=== PATIENT | male | born 1985 | race Caucasian/White ===

== ENCOUNTER 2017-06-07 23:09 | Inpatient (IN) | payer MEDICARE, OTHER ==
[~2017-06-07] VITALS: Ht 180.3 cm; Wt 78.6 kg
--- NOTE | ~2017-06-07 | A ---
[facility] Nutrition Therapy DATE: 06/08/17 Patient: MEGAN PACK Physician: RODRIGO Address: [address] [place] [address] Room/Bed: [address], Zip: [place] [address] Admit Date: 06/08/17 Date of : [birth year] Height: 5 11 Weight: 174 79 NUTRITIONAL ASSESSMENT: REASON: NPO in ICU 32 y/o male admitted for seizures PMH: Delta's syndrome, MR, seizures Anthropometrics: ht: 5'11" wt: 174# (79 kg) BMI 24 Labs: Glu 309, Creat 1.6, GFR 55.4 Meds: propofol, NaCl, vancomycin, zofran, BMP I/O & Bowel function: no data/900 Skin Integrity: no data Estimated Nutrition Needs: 2141-0760 kcal/kg (20-25 Kcal/kg BW) 79-118 g protein (1.0-1.5 g/kg) fluids consistent with kcals or per MD Assessment: Chart reviewed, events noted. Pt is intubated and sedated in ICU. Pt has had multiple seizures due to his PMH. Pt has DHT in place. The pt is currently on Propofol, running at 20.8 mL/hr. No family in room at time of visit. Please see recommendations, RD will continue to follow. Dx: Inadequate oral intake r/t current condition, PMH AEB pt on vent, NPO Intervention: 1. NPO Monitoring, Evaluation and Goals: 1. Enteral nutrition; once medically feasible, if initiated, provide >80% estimated goal volume 2. Oral intake; once medically feasible, if diet advanced, consume/tolerate >50% of all meals 3. Weight; promote healthy weight maintenance 4. Labs: WNL Recommendations: 1. WITH PROPOFOL: [facility] Nutrition Therapy DATE: 06/08/17 Patient: MEGAN PACK Physician: RODRIGO Address: [address] [place] [address] Room/Bed: [address], Zip: [place] [address] Admit Date: 06/08/17 Date of : [birth year] Height: 5 11 Weight: 174 79 Once medically feasible, per MD, initiate enteral nutrition support of Jevity 1.5 @ 20 mL/hr and advance 15 mL q 8 hours to goal rate of 45 mL/hr x 24 hours + sugar-free prostat 30 ml once daily. This provides 2270 kcal (with propofol), 84 g protein, 821 mL h20. Free h20 flushes per MD. WITHOUT PROPOFOL: Once medically feasible, per MD, initiate enteral nutrition support of Jevity 1.5 @ 20 mL/hr and advance 15 mL q 8 hours to goal rate of 55 mL/hr. This provides 1980 kcal, 84 g protein, 1003 mL h20. Free h20 flushes per MD. 2. If pt extubated, advance diet per [employer] recommendations to regular diet. RD will f/u per protocol as pt is at mild/moderate nutritional risk. Respectfully, BERNARDA ROCKWELL, Train Station Server Murali Dewitt MS, RD, LD Food and Nutritional Services [facility] cc: client file
--- NOTE | ~2017-06-07 | CR6 ---
[facility] A Service of [facility] & [facility] RADIOLOGY TEXT RESULTS PATIENT: MEGAN PACK LOCATION: [address] : 83 UNIT #: [id number] AGE: [address]: Nallely Le MD SEX: M ORDER DR: [id number] [id number] [place], [place] [address] [id number] I MR#: [id number] Acc #: [id number] NAME: MEGAN PACK : 1985 SEX: M STUDY DATE/TIME: 06/09/2017 14:21 UNIT: [facility] ROOM: [facility] STUDY DESCRIPTION: CR Abdomen Portable Sng View Attending Physician: Nallely Le M.D. Ordering Physician: Er Physicians Primary Care Physician: No Primary Care Physician MEDICAL IMAGING REPORT This report is preliminary unless electronic signature is present EXAM AP of the abdomen INDICATIONS Dobbhoff tube placement. COMPARISON Yesterday FINDINGS Tip of the Dobbhoff tube is located below the diaphragm in the region of the stomach. IMPRESSION Tip of the Dobbhoff tube in the region of the stomach. Dictated by... Vu Burroughs M.D. THIS IS AN ELECTRONICALLY VERIFIED REPORT Vu Burroughs M.D. at 06/12/2017 7:25 AM Roslyn TD: 06/09/2017 17:44 JOB #: [id number] MEDICAL IMAGING REPORT Page 1 of 1 COPY
--- NOTE | ~2017-06-07 | CR72 ---
[facility] A Service [facility] RADIOLOGY TEXT RESULTS PATIENT: MEGAN PACK LOCATION: [address]07 : 83 UNIT #: [id number] AGE: [address]: Nallely Le MD SEX: M ORDER DR: [id number] [facility] [address] [facility]. [place], [place] [address] [id number] I MR#: [id number] Acc #: [id number] NAME: MEGAN PACK. : 1985 SEX: M STUDY DATE/TIME: 06/09/2017 5:53 UNIT: [facility] ROOM: [facility] STUDY DESCRIPTION: CR Chest Single View Portable Attending Physician: Nallely Le M.D. Ordering Physician: Yas Houston M.D. Primary Care Physician: Primary Care Physician No MEDICAL IMAGING REPORT This report is preliminary unless electronic signature is present EXAM Single view chest INDICATION Left lower lobe pnuemonia. Pleural effusion FINDINGS Single portable AP view of the chest compared to 06/08/2017. Endotracheal tube and enteric tube remain in place. Heart and mediastinal contours are unchanged. Developing airspace opacity in the left lung base. There may be a small associated effusion. No pneumothorax. IMPRESSION Developing airspace opacity in the left lung base likely represents atelectasis. There may be a small associated effusion. Dictated by... Chris Nicole M.D. THIS IS AN ELECTRONICALLY VERIFIED REPORT Chris Nicole M.D. at 06/09/2017 4:00 PM JAK/neela TD: 06/09/2017 08:51 JOB #: [id number] MEDICAL IMAGING REPORT [facility] A Service [facility] RADIOLOGY TEXT RESULTS PATIENT: MEGAN PACK LOCATION: [address] : 83 UNIT #: [id number] AGE: [address]: Nallely Le MD SEX: M ORDER DR: Page 1 of 1 COPY
--- NOTE | ~2017-06-07 | CR72 ---
[facility] A Service of [facility] RADIOLOGY TEXT RESULTS PATIENT: MEGAN PACK LOCATION: [place] [address]21 : 83 UNIT #: [id number] AGE: [address]: Nallely Le MD SEX: M ORDER DR: [id number] [facility] [address] [facility]. [place], [place] [address] [id number] I MR#: [id number] Acc #: [id number] NAME: MEGAN PACK : 1985 SEX: M STUDY DATE/TIME: 06/07/2017 23:24 UNIT: [facility] ROOM: [facility] STUDY DESCRIPTION: CR Chest Single View Portable Attending Physician: Nallely Le M.D. Ordering Physician: Shady Yeh M.D. Primary Care Physician: Primary Care Physician No MEDICAL IMAGING REPORT This report is preliminary unless electronic signature is present EXAM Portable chest INDICATION Tube placement followup. PROCEDURE Frontal view chest. COMPARISON 06/26/2016. FINDINGS ET tube is in place and positioned 3.5 cm above the thor. Heart size is within normal limits. There is no dense consolidation or visible pneumothorax. IMPRESSION ET tube 3.5 cm above the thor. Otherwise no change from 06/26/2016. Dictated by... Hubert Monroy M.D. THIS IS AN ELECTRONICALLY VERIFIED REPORT Hubert Monroy M.D. at 06/08/2017 9:54 PM EED/neela TD: 06/08/2017 09:17 JOB #: [id number] MEDICAL IMAGING REPORT Page 1 of 1 COPY
--- NOTE | ~2017-06-07 | CR7 ---
[facility] of [facility] RADIOLOGY TEXT RESULTS PATIENT: MEGAN PACK LOCATION: [address] : 83 UNIT #: [id number] AGE: [address]: Nlalely Le MD SEX: M ORDER DR: [id number] [facility] [address] [facility]. [place], [place] [address] [id number] I MR#: [id number] Acc #: [id number] NAME: MEGAN PACK : 1985 SEX: M STUDY DATE/TIME: 06/08/2017 10:01 UNIT: [facility] ROOM: [facility] STUDY DESCRIPTION: CR Abdomen Single AP View Attending Physician: Nallely Le M.D. Ordering Physician: Nallely Le M.D. Primary Care Physician: Primary Care Physician No MEDICAL IMAGING REPORT This report is preliminary unless electronic signature is present EXAM Portable abdomen HISTORY 32-year-old male, history of pin worms, Dobbhoff tube placement. FINDINGS Portable view of the upper abdomen demonstrates weighted tip of the Dobbhoff feeding tube about 15 cm below the GE junction within the proximal stomach. This should be satisfactory gastric positioning. Additional advancement 15-20 cm recommended for more optimal distal gastric or small bowel positioning if required. Lung bases unremarkable. Nonobstructive bowel gas pattern. Dictated by... Sahil Burroughs M.D. THIS IS AN ELECTRONICALLY VERIFIED REPORT Sahil Burroughs M.D. at 06/08/2017 5:33 PM CLARENCE/john TD: 06/08/2017 17:08 JOB #: [id number] MEDICAL IMAGING REPORT Page 1 of 1 COPY
--- NOTE | ~2017-06-07 | CT71 ---
[facility] A Service [facility] RADIOLOGY TEXT RESULTS PATIENT: MEGAN PACK LOCATION: [address]07 : 83 UNIT #: [id number] AGE: [address]: Nallely Le MD SEX: M ORDER DR: [id number] [address] [address] [id number] I MR#: [id number] Acc #: [id number] NAME: MEGAN PACK : 1985 SEX: M STUDY DATE/TIME: 06/08/2017 2:06 UNIT: [facility] ROOM: [facility] STUDY DESCRIPTION: CT Head Wo Contrast Attending Physician: Nallely Le M.D. Ordering Physician: Shady Yeh M.D. Primary Care Physician: No Primary Care Physician MEDICAL IMAGING REPORT This report is preliminary unless electronic signature is present EXAM CT head without contrast. INDICATIONS Seizure today. PROCEDURE Unenhanced CT head. This CT exam was performed with one or more of the following radiation dose reduction techniques: automatic exposure control, adjustment of mA and/or kV according to patient size, and iterative reconstruction. COMPARISON 12/12/2016 FINDINGS No acute hemorrhage, abnormal mass effect, extraaxial fluid collection or hydrocephalus. No depressed calvarial fracture. IMPRESSION No acute intracranial findings. Dictated by... Hubert Monroy M.D. THIS IS AN ELECTRONICALLY VERIFIED REPORT Hubert Monroy M.D. at 06/08/2017 9:52 PM EED/pc TD: 06/08/2017 11:22 JOB #: [id number] MEDICAL IMAGING REPORT [facility] A [facility] RADIOLOGY TEXT RESULTS PATIENT: MEGAN PACK LOCATION: [address] : 83 UNIT #: [id number] AGE: [address]: Nallely Le MD SEX: M ORDER DR: Page 1 of 1 COPY
--- NOTE | ~2017-06-07 | FU ---
[facility] Nutrition Therapy DATE: 06/12/17 Patient: MEGAN PACK Physician: RODRIGO Address: [address] [place] [address] Room/Bed: [address], Zip: [place] [address] Admit Date: 06/08/17 Date of : [birth year] Height: 5 11 Weight: 169 77 NUTRITION MONITORING/FOLLOW-UP: Reason: FOLLOW UP Anthropometrics: Ht: 5'11" Adm wt: 79 kg BMI: 24 Wt 06/12: 77 kg Labs: K+ 3.3 BUN 7 Creat 0.5 Accuchecks 85-95 Meds: MgSO4, KCl, NaCl, pepcid, novolog, zofran I&O's: , last BM 06/12 Skin: Old bruises right thigh/ hip, no edema documented Diet: Regular (Diet not entered in [employer] yet as order was just written) Assessment: Chart reviewed, events noted. Pt was extubated yesterday, DHT was discontinued and bedside swallow eval was completed by RN. Pt passed bedside swallow per RN report. MD recently advanced the pt's diet, therefore, he has not received a meal as of yet. RN reports that the pt has been requesting food all morning, seems to have a great appetite, and did eat some pudding. 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 No dietary restrictions recommended for this pt; therefore, no diet education required at this time. Dx: Inadequate oral intake RT clinical condition, ventilator dependence AEB NPO status- NO LONGER RELEVANT New Dx: Altered nutrient-related lab values RT clinical condition AEB K+ 3.3. Intervention: 1. Advance to regular diet as tolerated Monitoring, Evaluation and Goals: 1. Enteral nutrition- NO LONGER RELEVANT 2. Oral intake; advance diet- MET 3. Weight; prevent unintentional weight loss- IN PROGRESS 4. Improve labs; K+, BUN, creat NEW GOALS: 5. Oral intake; tolerate 50-100% of meals [facility] Nutrition Therapy DATE: 06/12/17 Patient: MEGAN PACK Physician: RODRIGO Address: [address] [place] [address] Room/Bed: [address], Zip: [place] [address] Admit Date: 06/08/17 Date of : [birth year] Height: 5 11 Weight: 169 77 Recommendations: 1. Advance the pt to a regular diet as tolerated. 2. Encourage adequate nutritional intake as needed. 3. Replete electrolytes to WNL PRN (K+ low). Status: Pt is at mild nutritional risk. RD will follow hospital course per protocol. Respectfully, LUÍS ISLAS RD, LD Food and Nutritional Services [facility] cc: client file
--- NOTE | ~2017-06-07 | CR72 ---
[facility] A Service of [facility] RADIOLOGY TEXT RESULTS PATIENT: MEGAN PACK LOCATION: [facility] 329-01 : 83 UNIT #: [id number] AGE: [address]: JAVON WHITT V SEX: M ORDER DR: [id number] [facility] [address] [facility]. [place], [place] [address] [id number] I MR#: [id number] Acc #: [id number] NAME: MEGAN PACK. : 1985 SEX: M STUDY DATE/TIME: 06/12/2017 13:45 UNIT: [address] ROOM: [facility] STUDY DESCRIPTION: CR Chest Single View Portable Attending Physician: Javon Whitt M.D. Ordering Physician: Floyd Max M.D. Primary Care Physician: Primary Care Physician No MEDICAL IMAGING REPORT This report is preliminary unless electronic signature is present EXAM Frontal chest, 06/12/2017 INDICATION 32-year-old male with shortness of air, seizure, respiratory failure, symptoms since June 08. Hypertension. TECHNIQUE Frontal chest was performed and compared with 06/09/2017. FINDINGS Cardiac silhouette is within normal limits for technique. Vascularity is unremarkable. Lung volumes are low and there is some probable atelectasis in the lung bases, left greater than right. No pneumothorax or effusion. Incidental azygos lobe. Power pack device with electrode leads extending cephalad over the left hemithorax and left neck soft tissues. IMPRESSION 1. Removal of the ET tube and enteric tube since the prior study. 2. Low lung volumes with probable atelectasis in the lung bases, left greater than right. No new effusion or pneumothorax. Dictated by... Jc Allen M.D. THIS IS AN ELECTRONICALLY VERIFIED REPORT Jc Allen M.D. at 06/13/2017 7:10 AM Karyna TD: 06/12/2017 23:26 [facility] A Service of [facility] RADIOLOGY TEXT RESULTS PATIENT: MEGAN PACK LOCATION: [facility] 329-01 : 83 UNIT #: [id number] AGE: [address]: JAVON WHITT V SEX: M ORDER DR: JOB #: [id number] MEDICAL IMAGING REPORT Page 1 of 1 COPY
--- NOTE | ~2017-06-07 | CR72 ---
[facility] A Service of [facility] & [facility] RADIOLOGY TEXT RESULTS PATIENT: MEGAN PACK LOCATION: [address] : 83 UNIT #: [id number] AGE: [address]: Nallely Le MD SEX: M ORDER DR: [id number] [facility] [address] [facility]. [address] [id number] I MR#: [id number] Acc #: [id number] NAME: MEGAN PACK : 1985 SEX: M STUDY DATE/TIME: 06/08/2017 9:39 UNIT: [facility] ROOM: [facility] STUDY DESCRIPTION: CR Chest Single View Portable Attending Physician: Nallely Le M.D. Ordering Physician: Nallely Le M.D. Primary Care Physician: Primary Care Physician No MEDICAL IMAGING REPORT This report is preliminary unless electronic signature is present EXAM Portable chest 06/08 INDICATIONS Respiratory failure. Feeding tube placement. FINDINGS AP portable chest is compared with earlier this morning. ET tube mid trachea. Feeding tube is present. It appears to be in mid thoracic esophagus, not in the stomach. The tube should be repositioned. There is some mild infiltrate or atelectasis at the left base. There is no pneumothorax. Dictated by... Chandler Bhagat Jr., M.D. THIS IS AN ELECTRONICALLY VERIFIED REPORT Chandler Bhagat Jr., M.D. at 06/08/2017 5:05 PM RLK/john TD: 06/08/2017 15:32 JOB #: [id number] MEDICAL IMAGING REPORT Page 1 of 1 COPY
--- NOTE | ~2017-06-07 | CR72 ---
[facility] A Service of [facility] & [facility] RADIOLOGY TEXT RESULTS PATIENT: MEGAN PACK LOCATION: [address] : 83 UNIT #: [id number] AGE: [address]: Nallely Le MD SEX: M ORDER DR: [id number] [facility] [address] [facility]. [place], [place] [address] [id number] I MR#: [id number] Acc #: [id number] NAME: MEGAN PACK : 1985 SEX: M STUDY DATE/TIME: 06/10/2017 6:05 UNIT: [facility] ROOM: [facility] STUDY DESCRIPTION: CR Chest Single View Portable Attending Physician: Nallely Le M.D. Ordering Physician: Yas Houston M.D. Primary Care Physician: Primary Care Physician No MEDICAL IMAGING REPORT This report is preliminary unless electronic signature is present EXAM Chest x-ray portable HISTORY Short of air, respiratory failure and seizure. Symptoms for 3 days. COMMENT Single frontal portable view of the chest timed 06:05 on 06/10/2017 is compared to a film from 06/09/2017. Endotracheal tube satisfactory. There is probably a vagus nerve stimulator present. Feeding tube present, tip not on at the film. There is new or increasing linear airspace disease left lung base. Followup to complete clearing recommended. It could be atelectasis. The heart size is normal. There is no pneumothorax. There is patchy airspace disease at the right base. It is more nonspecific and slightly worse. No pleural effusion. IMPRESSION New or increasing linear airspace disease at the left base probably atelectasis but follow-up to clearing recommended. Mild worsening of patchy airspace disease at the right base more nonspecific. Please exclude clinical concern for aspiration or pneumonia. Endotracheal tube satisfactory. Feeding tube present, tip not on the film. On the prior study a density is marked over the mediastinum. On the current study it is not seen. Please correlate with clinical course. Dictated by... Catarina Cope M.D. THIS IS AN ELECTRONICALLY VERIFIED REPORT Catarina Cope M.D. at 06/10/2017 4:15 PM LAKESHA/anastasia [facility] A Service of [facility] & [facility] RADIOLOGY TEXT RESULTS PATIENT: MEGAN PACK LOCATION: [address] : 83 UNIT #: [id number] AGE: [address]: Nallely Le MD SEX: M ORDER DR: TD: 06/10/2017 13:43 JOB #: [id number] MEDICAL IMAGING REPORT Page 1 of 1 COPY
--- NOTE | ~2017-06-07 | CR72 ---
[facility] A Service of [facility] & [facility] RADIOLOGY TEXT RESULTS PATIENT: MEGAN PACK LOCATION: [facility] 329-01 : 83 UNIT #: [id number] AGE: [address]: JAVON WHITT V SEX: M ORDER DR: [id number] [facility] [address] [place], [place] [address] [id number] I MR#: [id number] Acc #: [id number] NAME: MEGAN PACK : 1985 SEX: M STUDY DATE/TIME: 06/13/2017 05:42 [facility]: [facility] STUDY DESCRIPTION: CR Chest Single View Portable Attending Physician: Javon Whitt M.D. Ordering Physician: Yas Houston M.D. Primary Care Physician: No Primary Care Physician MEDICAL IMAGING REPORT This report is preliminary unless electronic signature is present EXAM Portable chest, 06/13, 0542 hours. INDICATIONS Shortness of air and seizures. Symptoms for 5 days. COMPARISON 06/12/2017 FINDINGS A single AP portable view of the chest shows both lungs to be clear. The heart is normal in size. The mediastinal contour is normal. No significant bone abnormalities are seen. IMPRESSION Normal portable chest. Dictated by... Chandler Bhagat Jr., M.D. THIS IS AN ELECTRONICALLY VERIFIED REPORT Chandler Bhagat Jr., M.D. at 06/13/2017 8:15 PM JING/citlaly TD: 06/13/2017 12:10 JOB #: [id number] MEDICAL IMAGING REPORT Page 1 of 1 COPY
--- NOTE | ~2017-06-07 | CR72 ---
[facility] A Service of [facility] & [facility] RADIOLOGY TEXT RESULTS PATIENT: MEGAN PACK LOCATION: [address] : 83 UNIT #: [id number] AGE: [address]: Nallely Le MD SEX: M ORDER DR: [id number] [facility] [address] [facility]. [place], [place] [address] [id number] I MR#: [id number] Acc #: [id number] NAME: MEGAN PACK : 1985 SEX: M STUDY DATE/TIME: 06/08/2017 5:53 UNIT: [facility] ROOM: [facility] STUDY DESCRIPTION: CR Chest Single View Portable Attending Physician: Nallely Le M.D. Ordering Physician: Shady Yeh M.D. Primary Care Physician: Primary Care Physician No MEDICAL IMAGING REPORT This report is preliminary unless electronic signature is present EXAM Portable chest 06/08/2017 INDICATION Respiratory failure, shortness of air for 1 day. Follow up endotracheal tube. COMPARISON 06/07/2017. FINDINGS This portable view of the chest shows the endotracheal tube is in good position with its tip 3 cm above the thor. The right lung is clear. There is mild left lower lobe atelectasis. A electronic device is present with the wire extending up into the neck. Dictated by... Paulo Melgoza M.D. THIS IS AN ELECTRONICALLY VERIFIED REPORT Paulo Melgoza M.D. at 06/08/2017 2:14 PM WILLIAM/neela TD: 06/08/2017 12:22 JOB #: [id number] MEDICAL IMAGING REPORT Page 1 of 1 COPY
--- NOTE | ~2017-06-07 | CO ---
Unit #: [id number] #: [id number] Patient: MEGAN PACK [id number] [facility] [address] [facility]. [place], [place] [address] [id number] I MR#: [id number] NAME: MEGAN PACK. ROOM: [facility] Age: 32 Sex: M Admission Date: 06/08/2017 : 1985 Attending Physician: Nallely Le M.D. Primary Care Physician: Primary Care Physician No Consultation Date: 06/08/2017 CONSULTATION REPORT PRIMARY CARE PHYSICIAN Not known. REASON FOR CONSULTATION Multiple seizure, possible status. PATIENT IDENTIFICATION This is a 32-year-old white male, who was evaluated in room ICU 21 at [facility]. SOURCE OF INFORMATION The patient's mother and very detailed evaluation done by Dr. Bray. PROBLEM LIST 1. 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 2. 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 3. Seizure disorder. The patient has multiple antiepileptics and he is seeing epileptologist, Dr. Adonis Gil at [facility]. 4. His seizures are in pretty decent control. HISTORY OF PRESENT ILLNESS This is a 32-year-old gentleman, who was brought in because he had multiple seizures. This gentleman has history of epilepsy and he sees epileptologist, Dr. Adonis Gil at [facility]. He is on multiple medications at probably maximum doses and if he gets sick, he gets seizures. His other seizures are about once a month and occasionally he will have a flurry and go to the hospital and then does better, so he had a flurry of seizures yesterday and ended up with a temperature of 102.4 and he ended up with generalized prolonged seizure, got some Ativan, and ended up being intubated. He is still sedated, but apparently was following commands and no clinical seizures are seen. Otherwise, he is getting his medication via his NG tube. There is no change in medication. He was evaluated and there is question about UTI. He was evaluated for LP and he has 0 WBCs. PAST MEDICAL HISTORY As discussed above. PAST SURGICAL HISTORY As discussed above. Unit #: [id number] #: [id number] Patient: MEGAN PACK ALLERGIES Penicillin resulting in blisters, codeine. HOME MEDICATIONS Multivitamins, Vimpat 400 mg b.i.d., Briviact 100 mg b.i.d., Lamictal XR 200 mg in the morning and 100 in the evening, Fycompa 6 mg every evening. FAMILY HISTORY Negative for epilepsy. SOCIAL HISTORY The patient lives with his family. 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 REVIEW OF SYSTEMS Could not be obtained because the patient is intubated and sedated. PHYSICAL EXAMINATION VITAL SIGNS: Temperature 99.8, pulse is 79, respirations 15, blood pressure 113/74. No pain was reported. O2 saturations are 95% to 100%. Weight of 174 pounds. BMI was 24. T-max was 102.4. NEUROLOGIC: The patient is intubated and sedated. He is nonverbal. He response to painful stimuli. Not following commands. Cranial examination, really I did not see significant responds to verbal stimuli. Pupils are about 3 mm, reactivity is very questionable. Some dysconjugate was seen. I did not see any ptosis. I did not see any nystagmus. Sensation on the face and scalp seemed to be present. I did not see any facial asymmetry. Hearing is questionable. Tongue was midline. I could not visualize his oropharynx or uvula. Head turning was spontaneous. Motor examination, he responds to painful stimuli with some movement, possible withdrawal, but detailed examination really could not be done. Sensory examination, responds to pain. I could not get any reflexes. Toes are mute. Gait and coordination could not be evaluated. DIAGNOSTIC STUDIES LABORATORY RESULTS: Last night; his pH was 6.73, pCO2 was 69. He has improved significantly. His glucose was anywhere from 102 to 309, calcium 7.5, protein was 5.2. CSF glucose was 132. His serum glucose was elevated. Protein was normal at 26. No wbc's. White count was 14.3. Urinalysis, possibility of UTI. IMAGING STUDIES: Head CT was reported as no significant changes. Chest x-ray was also done. IMPRESSION 1. Likely breakthrough seizure. 2. Resume his medication. 3. He does look like he is in status. My recommendation is to continue the present plan as his mother is worried that whenever he goes to the Unit #: [id number] #: [id number] [facility], they change his medication. 4. The goal is to stop the status which I think we have achieved. 5. Airway breathing and circulation. 6. Support and treatment for possibility of any infection and we will go from there. Call me for any other questions, issues, or concerns and his mother acknowledges the plan and agrees. Seizure precautions apply. 7. Follow up with Dr. Adonis Gil and if needed, I will call him to change medication, if further seizures. Dictated by... Harry Vaughn M.D. ENA/nelia TD: 06/09/2017 03:18 JOB #: [id number] CONSULTATION REPORT Page 1 of 1 X Harry Vaughn MD X CONSULTATION REPORT
--- NOTE | ~2017-06-07 | CO ---
Unit #: [id number] #: [id number] Patient: MEGAN PACK [id number] [facility]. [place], [place] [address] [id number] I MR#: [id number] NAME: MEGAN PACK. ROOM: [facility] Age: 32 Sex: M Admission Date: 06/08/2017 : 1985 Attending Physician: Nallely Le M.D. Primary Care Physician: Primary Care Physician No CONSULTATION REPORT HISTORY OF PRESENT ILLNESS This is a 32-year-old gentleman with [place] syndrome and history of seizure disorders. He was admitted for status epilepticus. He was in his usual state of health until yesterday. He was having increased urinary frequency, then had 2 brief seizures, which were followed by more generalized seizure. The patient presented to the emergency room at 11:00 p.m. He was given 1 mg of Ativan to protect the airway. The seizures stopped, but the patient was having seizures of 102.4 without a clear source. He had significant metabolic and respiratory acidosis. The patient was placed on Vimpat, started on Rocephin for possible UTI and bolus with IV fluids. The patient was started on a Diprivan drip. Neurology has been consulted. We have been asked to see if we can manage the vent and get the patient soon off if possible. PAST MEDICAL HISTORY Significant for seizure disorder. He has a vagal nerve stimulator. He is followed by Dr. Gil of [facility] on multiple antiepileptic drugs. The patient has a history of Dez syndrome with mental retardation. The patient does have corrective foot surgery. He has very poor vision in the left eye. ALLERGIES The patient is allergic to penicillin and codeine. HOME MEDICATIONS Include Vimpat 400 mg p.o. b.i.d., Fycompa 4 mg p.o. daily, Briviact 100 mg p.o. b.i.d., Lamictal 200 mg at bedtime, 400 mg every morning. REVIEW OF SYSTEMS Unobtainable because patient is on the vent and is unable to give a history. HEENT: The patient does have eyes round, equal, and reactive to light. Right eye has more proptosis and there was also some scleral erythema. CHEST: Shows no accessory muscle use. LUNGS: Lung sounds clear bilaterally, but fairly decreased. There are no rhonchi or rales. ABDOMEN: Soft, nontender, and nondistended. EXTREMITIES: Shows no significant edema. DIAGNOSTIC STUDIES LABORATORY RESULTS: White count 4.3, hemoglobin 15.2, platelets of 191. Lactic acid is 1.1. BUN and creatinine 12/0.9. Bilirubin 0.1, protein is 5.2, albumin 3.5. Unit #: [id number] #: [id number] Patient: MEGAN PACK The plan is tomorrow to wean off the ventilator if okay with Neurology. The major risk is that the patient may have some seizures following extubation, not because of extubation itself, but because he may develop worsening seizures. Please page me at [phone] if you have any questions. Dictated by... Marko Cavazos/nelia TD: 06/09/2017 05:33 JOB #: [id number] CONSULTATION REPORT Page 1 of 1 X Didier Houston MD CONSULTATION REPORT
--- NOTE | ~2017-06-07 | CR72 ---
[facility] A Service of [facility] RADIOLOGY TEXT RESULTS PATIENT: MEGAN PACK LOCATION: [address] : [birth year] UNIT #: [id number] AGE: [address]: Nallely Le MD SEX: M ORDER DR: [id number] [place], [place] [address] [id number] MR#: [id number] Acc #: [id number] NAME: MEGAN PACK : 1985 SEX: M STUDY DATE/TIME: 06/09/2017 14:18 UNIT: [facility] ROOM: [facility] STUDY DESCRIPTION: CR Chest Single View Portable Attending Physician: Nallely Le M.D. Ordering Physician: Er [facility]icians Primary Care Physician: No Primary Care Physician MEDICAL IMAGING REPORT This report is preliminary unless electronic signature is present EXAM Portable chest HISTORY Feeding tube placement. FINDINGS Feeding tube is malpositioned and is kinked in the mid chest at the level of the mid thoracic esophagus with its tip directed superiorly and should be repositioned. ETT tip is approximately 3 cm above the thor. Minimal patchy infiltrate or atelectasis in both bases. The remainder of the lungs are clear. Dictated by... Lucho Mckeno M.D. THIS IS AN ELECTRONICALLY VERIFIED REPORT Lucho Mckeon M.D. at 06/09/2017 11:46 PM CHEYENNE/milena TD: 06/09/2017 17:47 JOB #: [id number] MEDICAL IMAGING REPORT Page 1 of 1 COPY
--- NOTE | ~2017-06-07 | HP ---
Unit #: [id number] #: [id number] Patient: MEGAN PACK [id number] [address] [address] [id number] I MR#: [id number] NAME: MEGAN PACK. ROOM: [id number] Age: 32 Sex: M Admission Date: 06/08/2017 : 1985 Attending Physician: Aimee Bray M.D. Primary Care Physician: No Primary Care Physician HISTORY AND PHYSICAL CHIEF COMPLAINT Status epilepticus. HISTORY This 32-year-old male with [place]'s syndrome, seizure disorder, is admitted for status epilepticus. The patient was in his usual state of health until about 9:00 last evening. He experienced urinary frequency. He then had a brief seizure x2. These are described as staring-like episodes. He then developed more generalized seizures. He presented to this emergency department at 11 p.m. actively seizing. He was given 1 mg of IV Ativan and intubated to protect his airway. After the Ativan, his seizures stopped. Temperature was 102.4 without a clear source. He was noted to be having significant metabolic respiratory acidosis which is improving. He received 200 mg of IV Vimpat, antibiotics have been ordered, bolused with IV fluids. He currently is on a Diprivan drip. PAST MEDICAL HISTORY 1. Seizure disorder: The patient has a vagal nerve stimulator in place which apparently does not work. He is followed by Dr. Gil at [facility]. He is on multiple anti-epileptic drugs. 2. Dez's syndrome with mental retardation, seizures. 3. Corrective foot surgery. 4. 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 ALLERGIES Penicillin resulting in blisters and codeine. HOME MEDICATIONS 1. Vitamins. 2. Vimpat 200 mg, two tablets b.i.d. 3. Briviact 100 mg b.i.d. 4. Lamictal XR 200 mg in the morning, 100 mg in the evening. 5. Fycompa 6 mg each evening. FAMILY HISTORY Negative for epilepsy. SOCIAL HISTORY The patient lives with his family. He has the IQ of a 9-year-old, according to old records. He is a lifelong nonsmoker, does not drink alcohol. Unit #: [id number] #: [id number] Patient: MEGAN PACK REVIEW OF SYSTEMS Impossible to obtain as patient currently is sedated on a ventilator. PHYSICAL EXAMINATION GENERAL APPEARANCE: 32-year-old male who currently is sedated on a ventilator. VITAL SIGNS: Temperature 102.4, pulse was initially 144 but has improved, respirations 28, blood pressure 156/128. O2 saturation 93% on an FIO2 of 75%. HEENT: Eyes PERRLA. Scleral injection is noted, particularly let eye. Patient is orally intubated. NECK: Supple without adenopathy. CHEST: Actually fairly clear. CARDIAC: Normal S1 and S2 without murmur. ABDOMEN: Bowel sounds are diminished but nontender. No hepatosplenomegaly, tenderness or masses. EXTREMITIES: Without edema. Pedal pulses are present. No splinter hemorrhages noted over the fingernail beds. NEUROLOGIC: The patient is sedated on a ventilator but does move his upper extremities. DIAGNOSTIC STUDIES LABORATORY: Admission labs - hematocrit is 51.5, white blood count is 26.7, normal platelet count. Coags normal. SMA-12 - glucose is 309, previous glucose was 157. Creatinine 1.6, previous creatinine was 1.5. CO2 9. Alkaline phos. 93, lactic acid 25.8. Initial ABG - pH 6.78, pCO2 59, pO2 156 on a tidal volume of 500, PEEP of 5, AC 15, FIO2 60%. Current ABG - pH 7.34, pCO2 40, pO2 228 on tidal volume by 50, PEEP of 5, AC 15, FIO2 75%. Urinalysis - protein, glucose, blood noted with 10-25 white cells but no bacteria, 2-5 red cells, moderate squamous cells. IMAGING: Head CT - no acute disease. Probable sinus tachycardia versus SVT. Nonspecific ST wave abnormalities. Chest x-ray - ET-tube in good position. ASSESSMENT 1. Status epilepticus, possibly patient's seizures became uncontrolled due to a fever, I am unsure. 2. Fever or uncertain source: CSF pending. 3. Hyperglycemia. 4. Dez's syndrome. 5. Acute versus chronic kidney disease. 6. Elevated lactic acid, in part related to status epilepticus but will certainly cover with IV fluids and antibiotics for possible sepsis. 7. The patient was noted to have likely pinworms on exam by the ER physician during the LP. PLANS 1. Rocephin and vancomycin pending workup. CSF fluid is currently pending. Neck, however, is supple. 2. Continue anti-epileptic drugs. Morganrialisha drip for now and neurology Unit #: [id number] #: [id number] Patient: MEGAN PACK consultation. 3. Recheck chest x-ray this morning to rule out aspiration and consult pulmonary. 4. DVT and gastritis prophylaxis. 5. Check procalcitonin level. 6. Recheck labs this morning and lactic acid level this morning. 7. Obtain Accu-Cheks and hemoglobin A1c and, if needed, will cover with sliding scale insulin. Critical care time spent in evaluating this patient was 35 minutes. Dictated by Aimee Bray M.D. AML/df TD: 06/08/2017 05:42 JOB #: [id number] HISTORY AND PHYSICAL Page 1 of 1 X Aimee Bray MD X HISTORY AND PHYSICAL
--- NOTE | ~2017-06-07 | EKG ---
PATIENT: MEGAN PACK UNIT #: [id number] Ventricular Rate: 147 BPM Atrial Rate: 147 BPM P-R Interval: 164 ms QRS Duration: 96 ms Q-T Interval: 236 ms QTC Calculation(Bezet): 369 ms P [place]: 82 degrees Calculated R [place]: 84 degrees Calculated T [place]: 56 degrees Diagnosis Line: Suspect unspecified pacemaker failure Diagnosis Line: Sinus tachycardia Diagnosis Line: Possible Left atrial enlargement Diagnosis Line: Nonspecific T wave abnormality Diagnosis Line: Abnormal ECG Diagnosis Line: When compared with ECG of 26-JUN-2016 21:56, Diagnosis Line: No significant change was found Diagnosis Line: Confirmed by ZEB YI MD ([id number]) on Diagnosis Line: 06/09/2017 7:30:55 AM INTERPRETING MD: KASSIDY MARINA
[~2017-06-07 23:09] MED LIST: ATIVAN PO; BRIVIACT100 MG PO; DILANTIN PO; FYCOMPA4 MG PO; KEPPRA750 MG PO; LAMICTAL XR200 MG PO; VIMPAT100 MG PO; VIMPAT200 MG PO; ZITHROMAX PO
[2017-06-07 23:43] LABS: ARTERIAL BLD GAS O2 SATURATION 94.2 % (90.0-100.0); ARTERIAL BLOOD GAS CARBOXY HB 0.3 %sat (0.0-9.0); ARTERIAL BLOOD GAS HCO3 8.8 mmol/L; ARTERIAL BLOOD GAS MET HB 1.6 %sat (0.0-2.0)
[2017-06-07 23:45] LABS: ARTERIAL BLOOD GAS ALLEN TEST NORMAL; ARTERIAL BLOOD GAS ART SITE LEFT RADIAL; ARTERIAL BLOOD GAS DELIVERY VENT; ARTERIAL BLOOD GAS VENT MODE AC; ARTERIAL BLOOD GAS pH 6.783 (7.350-7.450); ARTERIAL DRAW? YES
[2017-06-08 00:13] LABS: POC - CKMB <1.0 ng/mL (0.0-7.9); POC - TROPONIN <0.05 ng/mL (<=0.05)
[2017-06-08 00:14] LABS: INR 1.1; PARTIAL THROMBOPLASTIN TIME 33.1 SECONDS (23.5-31.3); PROTHROMBIN TIME (PATIENT) 11.6 SECONDS (10.0-11.7)
[2017-06-08 00:17] LABS: ALBUMIN SERUM 4.3 g/dL (3.5-5.0); BILIRUBIN,TOTAL 0.4 mg/dL (0.2-2.0); BUN/CREATININE RATIO 9.37; CALCIUM SERUM 9.4 mg/dL (8.4-10.2); CREATININE SERUM 1.6 mg/dL (0.6-1.4); GLOM FILT RATE Estimated 55.4 mL/min (>60); POTASSIUM 3.8 mmol/L (3.5-5.1); PROTEIN TOTAL SERUM 6.6 g/dL (6.0-8.3)
[2017-06-08 00:39] LABS: BASOPHIL# 0.3 X10e3 (0-0.3); EOSINOPHIL# 0.7 X10e3 (0-0.7); EOSINOPHIL% 2.8 % (0.0-7.0); HEMATOCRIT 51.5 % (38.0-50.0); LYMPHOCYTE# 4.9 X10e3 (1.0-3.5); LYMPHOCYTE% 18.2 % (17.0-45.0); MEAN CELL VOLUME 93.1 FL (83-96); MEAN CORPUSCULAR HEMOGLOBIN 28.9 PG (28-34); MEAN CORPUSCULAR HGB CONC 31.1 g/dL (30-36); MEAN PLATELET VOLUME 7.6 FL (6.5-11.5); MONOCYTE# 1.9 X10e3 (0-1.0); PLATELET COUNT 403 X10e3 (140-420); RED BLOOD COUNT 5.54 X10e (3.90-5.60); RED CELL DISTRIBUTION WIDTH 14.3 % (11.0-15.5); WHITE BLOOD COUNT 26.7 X10e3 (4.0-10.5)
[2017-06-08 00:40] LABS: DIFF IND YES
[2017-06-08 00:44] LABS: ANISOCYTOSIS SL; BURR CELLS PRESENT; DIFFERENTIAL COMMENT ATY.LYMPHS; OVALOCYTES PRESENT; PLATELET ESTIMATE INCREASED (NORMAL)
[2017-06-08 01:41] LABS: URINE APPEARANCE CLEAR; URINE BILIRUBIN NEG (NEG); URINE BLOOD 2+ (NEG); URINE COLOR YELLOW; URINE GLUCOSE 500 MG/DL (NEG); URINE KETONE NEG (NEG); URINE LEUKOCYTE ESTERASE NEG (NEG); URINE NITRATE NEG (NEG); URINE PROTEIN 2+ (NEG); URINE SPECIFIC GRAVITY 1.015 (1.003-1.035); URINE UROBILINOGEN 0.2 MG/DL (NEG)
[2017-06-08 01:44] LABS: CULTURE INDICATED? YES; URINE BACTERIA AUWI NEG (NEGATIVE); URINE SQUAMOUS EPITHELIAL CELL MOD /[HPF]
[2017-06-08 01:52] LABS: URINE SPERM PRESENT
[2017-06-08 04:14] LABS: ARTERIAL BLOOD GAS CARBOXY HB 0.2 %sat (0.0-9.0); ARTERIAL BLOOD GAS HCO3 22.2 mmol/L; ARTERIAL BLOOD GAS MET HB 0.8 %sat (0.0-2.0); ARTERIAL BLOOD GAS PCO2 40.7 mmHg (35.0-45.0); ARTERIAL BLOOD GAS pH 7.345 (7.350-7.450)
[2017-06-08 04:15] LABS: ARTERIAL BLOOD GAS ALLEN TEST NORMAL; ARTERIAL BLOOD GAS ART SITE RIGHT RADIAL; ARTERIAL BLOOD GAS DELIVERY VENT; ARTERIAL BLOOD GAS VENT MODE AC; ARTERIAL DRAW? YES
[2017-06-08 04:49] LABS: GLUCOSE-CSF 132 mg/dL (50-80); PROTEIN-CSF 26 mg/dL (15-45)
[2017-06-08 05:09] LABS: CSF APPEARANCE CLEAR (CLEAR); CSF RBC 2 CMM (0); CSF TUBE NUMBER 1; CSF WBC 0 CMM (0-8); CSF XANTHACHROMIC NO
[2017-06-08 05:15] LABS: CSF APPEARANCE CLEAR (CLEAR); CSF RBC 4 CMM (0); CSF TUBE NUMBER 4; CSF WBC 0 CMM (0-8); CSF XANTHACHROMIC NO
[2017-06-08 09:45] LABS: BASOPHIL% 0.2 % (0-2.5); EOSINOPHIL% 0.2 % (0.0-7.0); HEMATOCRIT 45.4 % (38.0-50.0); LYMPHOCYTE# 0.3 X10e3 (1.0-3.5); LYMPHOCYTE% 2.1 % (17.0-45.0); MEAN CORPUSCULAR HGB CONC 33.4 g/dL (30-36); MEAN PLATELET VOLUME 6.8 FL (6.5-11.5); MONOCYTE# 0.8 X10e3 (0-1.0); MONOCYTE% 5.4 % (3.0-12.0); NEUTROPHIL# 13.1 X10e3 (1.5-7.1); NEUTROPHIL% 92.1 % (40-75); RED BLOOD COUNT 5.23 X10e (3.90-5.60); WHITE BLOOD COUNT 14.3 X10e3 (4.0-10.5)
[2017-06-08 09:47] LABS: HEMOGLOBIN 15.2 gm/dL (13.0-16.0)
[2017-06-08 09:48] LABS: MEAN CELL VOLUME 86.8 FL (83-96); PLATELET COUNT 191 X10e3 (140-420)
[2017-06-08 09:49] LABS: DIFF IND NO
[2017-06-08 10:30] LABS: PROCALCITONIN 13.46 NG/ML
[2017-06-08 10:47] LABS: ALBUMIN SERUM 3.5 g/dL (3.5-5.0); BILIRUBIN,TOTAL 0.1 mg/dL (0.2-2.0); BUN/CREATININE RATIO 13.33; CALCIUM SERUM 7.5 mg/dL (8.4-10.2); CREATININE SERUM 0.9 mg/dL (0.6-1.4); POTASSIUM 3.6 mmol/L (3.5-5.1); PROTEIN TOTAL SERUM 5.2 g/dL (6.0-8.3)
[2017-06-08 11:09] LABS: MB 2.2 ng/ml
[2017-06-08] MEDS ORDERED: LAMICTAL100 MG PO ×2 (11:59→12:01)
[2017-06-08] MEDS ORDERED: LAMICTAL ODT200 MG PO (12:01)
[2017-06-09 05:38] LABS: BASOPHIL% 0.2 % (0-2.5); EOSINOPHIL# 0.3 X10e3 (0-0.7); EOSINOPHIL% 2.8 % (0.0-7.0); HEMOGLOBIN 13.8 gm/dL (13.0-16.0); LYMPHOCYTE# 0.6 X10e3 (1.0-3.5); LYMPHOCYTE% 5.1 % (17.0-45.0); MEAN CORPUSCULAR HEMOGLOBIN 28.9 PG (28-34); MEAN CORPUSCULAR HGB CONC 33.6 g/dL (30-36); MEAN PLATELET VOLUME 6.9 FL (6.5-11.5); MONOCYTE# 1.2 X10e3 (0-1.0); MONOCYTE% 9.5 % (3.0-12.0); NEUTROPHIL# 10.4 X10e3 (1.5-7.1); NEUTROPHIL% 82.4 % (40-75); PLATELET COUNT 146 X10e3 (140-420); RED BLOOD COUNT 4.77 X10e (3.90-5.60); WHITE BLOOD COUNT 12.6 X10e3 (4.0-10.5)
[2017-06-09 05:41] LABS: DIFF IND NO
[2017-06-09 06:36] LABS: BUN/CREATININE RATIO 12.5; CALCIUM SERUM 8.1 mg/dL (8.4-10.2); CREATININE SERUM 0.8 mg/dL (0.6-1.4); GLOM FILT RATE Estimated 116.6 mL/min (>60); POTASSIUM 3.6 mmol/L (3.5-5.1)
[2017-06-09 08:58] LABS: ARTERIAL BLD GAS O2 SATURATION 99.7 % (90.0-100.0); ARTERIAL BLOOD GAS HCO3 23.4 mmol/L; ARTERIAL BLOOD GAS PCO2 39.4 mmHg (35.0-45.0); ARTERIAL BLOOD GAS pH 7.383 (7.350-7.450)
[2017-06-09 08:59] LABS: ARTERIAL BLOOD GAS ALLEN TEST NORMAL; ARTERIAL BLOOD GAS ART SITE LEFT RADIAL; ARTERIAL BLOOD GAS CARBOXY HB 0.4 %sat (0.0-9.0); ARTERIAL BLOOD GAS DELIVERY VENT; ARTERIAL BLOOD GAS MET HB 0.9 %sat (0.0-2.0); ARTERIAL BLOOD GAS VENT MODE CPAP; ARTERIAL DRAW? YES
[2017-06-10 05:56] LABS: BASOPHIL% 0.3 % (0-2.5); EOSINOPHIL# 0.3 X10e3 (0-0.7); EOSINOPHIL% 3.3 % (0.0-7.0); HEMATOCRIT 39.2 % (38.0-50.0); HEMOGLOBIN 13.3 gm/dL (13.0-16.0); LYMPHOCYTE# 0.8 X10e3 (1.0-3.5); LYMPHOCYTE% 7.5 % (17.0-45.0); MEAN CELL VOLUME 84.9 FL (83-96); MEAN CORPUSCULAR HEMOGLOBIN 28.8 PG (28-34); MONOCYTE# 0.9 X10e3 (0-1.0); MONOCYTE% 8.4 % (3.0-12.0); NEUTROPHIL# 8.1 X10e3 (1.5-7.1); NEUTROPHIL% 80.5 % (40-75); PLATELET COUNT 169 X10e3 (140-420); RED BLOOD COUNT 4.61 X10e (3.90-5.60); WHITE BLOOD COUNT 10.1 X10e3 (4.0-10.5)
[2017-06-10 06:28] LABS: DIFF IND NO
[2017-06-10 07:09] LABS: BUN/CREATININE RATIO 18.33; CALCIUM SERUM 8.3 mg/dL (8.4-10.2); CREATININE SERUM 0.6 mg/dL (0.6-1.4); GLOM FILT RATE Estimated 131.2 mL/min (>60); POTASSIUM 3.6 mmol/L (3.5-5.1)
[2017-06-10 08:08] LABS: ARTERIAL BLD GAS O2 SATURATION 98.6 % (90.0-100.0); ARTERIAL BLOOD GAS CARBOXY HB 0.4 %sat (0.0-9.0); ARTERIAL BLOOD GAS MET HB 0.8 %sat (0.0-2.0); ARTERIAL BLOOD GAS PCO2 39.4 mmHg (35.0-45.0)
[2017-06-10 08:14] LABS: ARTERIAL BLOOD GAS ALLEN TEST NORMAL; ARTERIAL BLOOD GAS ART SITE RIGHT RADIAL; ARTERIAL DRAW? YES
[2017-06-10 08:15] LABS: ARTERIAL BLOOD GAS DELIVERY VENT; ARTERIAL BLOOD GAS VENT MODE SIMV
[2017-06-11 04:00] LABS: ARTERIAL BLOOD GAS CARBOXY HB 0.5 %sat (0.0-9.0); ARTERIAL BLOOD GAS HCO3 25.4 mmol/L; ARTERIAL BLOOD GAS MET HB 1.1 %sat (0.0-2.0); ARTERIAL BLOOD GAS PCO2 41.4 mmHg (35.0-45.0); ARTERIAL BLOOD GAS pH 7.395 (7.350-7.450)
[2017-06-11 04:09] LABS: ARTERIAL BLOOD GAS ALLEN TEST NORMAL; ARTERIAL BLOOD GAS ART SITE RIGHT RADIAL; ARTERIAL BLOOD GAS DELIVERY VENT; ARTERIAL BLOOD GAS VENT MODE SIMV; ARTERIAL DRAW? YES
[2017-06-11 07:09] LABS: BUN/CREATININE RATIO 22.5; CALCIUM SERUM 8.2 mg/dL (8.4-10.2); CREATININE SERUM 0.4 mg/dL (0.6-1.4); MAGNESIUM 1.7 mg/dL (1.6-3.0); POTASSIUM 3.3 mmol/L (3.5-5.1)
[2017-06-11 16:02] LABS: ARTERIAL BLD GAS O2 SATURATION 97.9 % (90.0-100.0); ARTERIAL BLOOD GAS CARBOXY HB 0.8 %sat (0.0-9.0); ARTERIAL BLOOD GAS MET HB 1.1 %sat (0.0-2.0); ARTERIAL BLOOD GAS PCO2 42.1 mmHg (35.0-45.0); ARTERIAL BLOOD GAS pH 7.383 (7.350-7.450)
[2017-06-11 16:06] LABS: ARTERIAL BLOOD GAS ALLEN TEST NORMAL; ARTERIAL BLOOD GAS ART SITE RIGHT RADIAL; ARTERIAL BLOOD GAS DELIVERY VENT; ARTERIAL BLOOD GAS VENT MODE SIMV; ARTERIAL DRAW? YES
[2017-06-12 05:57] LABS: BASOPHIL% 0.2 % (0-2.5); EOSINOPHIL# 0.4 X10e3 (0-0.7); EOSINOPHIL% 4.7 % (0.0-7.0); HEMATOCRIT 40.8 % (38.0-50.0); HEMOGLOBIN 14.1 gm/dL (13.0-16.0); LYMPHOCYTE# 0.6 X10e3 (1.0-3.5); LYMPHOCYTE% 7.7 % (17.0-45.0); MEAN CELL VOLUME 84.6 FL (83-96); MEAN CORPUSCULAR HEMOGLOBIN 29.2 PG (28-34); MEAN CORPUSCULAR HGB CONC 34.5 g/dL (30-36); MEAN PLATELET VOLUME 6.5 FL (6.5-11.5); MONOCYTE# 0.6 X10e3 (0-1.0); MONOCYTE% 8.3 % (3.0-12.0); NEUTROPHIL% 79.1 % (40-75); PLATELET COUNT 187 X10e3 (140-420); RED BLOOD COUNT 4.82 X10e (3.90-5.60); RED CELL DISTRIBUTION WIDTH 13.9 % (11.0-15.5); WHITE BLOOD COUNT 7.6 X10e3 (4.0-10.5)
[2017-06-12 06:01] LABS: DIFF IND NO
[2017-06-12 06:39] LABS: CALCIUM SERUM 8.5 mg/dL (8.4-10.2); CREATININE SERUM 0.5 mg/dL (0.6-1.4); GLOM FILT RATE Estimated 141.4 mL/min (>60); MAGNESIUM 1.8 mg/dL (1.6-3.0); POTASSIUM 3.3 mmol/L (3.5-5.1)
[2017-06-12 06:44] LABS: PROCALCITONIN 0.89 NG/ML
[2017-06-13 05:44] LABS: MAGNESIUM 1.7 mg/dL (1.6-3.0); POTASSIUM 3.4 mmol/L (3.5-5.1)
[2017-06-14 05:52] LABS: CALCIUM SERUM 8.8 mg/dL (8.4-10.2); CREATININE SERUM 0.7 mg/dL (0.6-1.4); GLOM FILT RATE Estimated 123.2 mL/min (>60); MAGNESIUM 1.9 mg/dL (1.6-3.0); POTASSIUM 3.6 mmol/L (3.5-5.1)
[2017-06-15 05:11] LABS: POTASSIUM 3.8 mmol/L (3.5-5.1)
[2017-06-15] MEDS ORDERED: PEPCID PO (14:57)
== END 2017-06-15 16:15 | disposition home or self-care (01) | DRG 871 ==
LOC: CED 23:09 → CEDOF 06-08 05:00 → CICCU3 06-08 05:00 → CEDOF 06-08 05:21 → CED 06-08 05:21 → CEDOF 06-08 06:19 → CICCU3 06-08 06:19 → C3A PCU 06-12 15:54
PROVIDERS: Emergency Medicine; Family Medicine; Internal Medicine; Internal Medicine Endocrinology, Diabetes & Metabolism; Internal Medicine Pulmonary Disease
PROC: 5A1945Z Respiratory Ventilation, 24-96 Consecutive Hours (ICD-10-PCS; principal; 2017-06-08)
PROC: 0DH67UZ Insertion of Feeding Device into Stomach, Via Natural or Artificial Opening (ICD-10-PCS; 2017-06-08)
PROC: 0BH17EZ Insertion of Endotracheal Airway into Trachea, Via Natural or Artificial Opening (ICD-10-PCS; 2017-06-08)
DX: A41.9 Sepsis, unspecified organism (principal); J96.22 Acute and chronic respiratory failure with hypercapnia; J96.21 Acute and chronic respiratory failure with hypoxia; N17.9 Acute kidney failure, unspecified; E87.4 Mixed disorder of acid-base balance; G40.801 Other epilepsy, not intractable, with status epilepticus; Q87.1 Congenital malformation syndromes predominantly associated with short stature; N39.0 Urinary tract infection, site not specified; B80 Enterobiasis; F79 Unspecified intellectual disabilities; H54.42 Blindness, left eye, normal vision right eye; Z88.0 Allergy status to penicillin; Z88.5 Allergy status to narcotic agent
CPT/HCPCS: 36415; 36600; 51702; 70450; 71010; 74000; 80048; 80053; 80202; 81003; 82308; 82550; 82553; 82803; 82945; 82947; 83036; 83605; 83735; 84132; 84157; 84484; 85025; 85610; 85730; 87040; 87070; 87086; 87172; 87205; 89051; 93005; 94002; 94003; 94640; 94760; 94761; 96361; 96374; 96375; 99291; C9254; J0696; J2060; J2250; J3370; J3475